=== PATIENT | female | born 1945 | race Caucasian/White ===

== ENCOUNTER → 2020-10-04 | Outpatient (CLI) | payer OTHER, BC ==
[~2020-10-04] MED LIST: ALENDRONATE SOD35 MG PO; ASPIR 8181 MG PO; BIOTIN1000 MCG PO; CALCIUM 600 +1 EAC1 PO; CYMBALTA60 MG PO; FISH OIL 1,001000 M2 PO; LOVASTATIN 20 M20 MG PO; NEXIUM40 MG PO; NORCO 5-325 TA1 EACH PO; PREMARIN VAGI42.5 G1 TOP; REQUIP1 MG PO; RESTASIS1 EACH OPHTHALMIC; TOPAMAX 25 MG T25 M1 PO; TRAMADOL 50 MG50 MG PO; VITAMIN D3400 UNIT PO; VITAMINC500 PO; XANAX 0.5 MG0.5 MG PO; ZOFRAN ODT4 MG PO
== END ==
LOC: RAD 14:23
PROVIDERS: ATTEND Internal Medicine
DX: R05 Cough (principal)